=== PATIENT | male | born 1970 | race American Indian/Alaskan Native ===

== ENCOUNTER 2019-08-12 08:43 | Emergency (ER) | payer SELFPAY ==
[2019-08-12] MEDS ORDERED: dexAMETHasone 20 MG/5 ML VIAL IM ONE (10:31)
[2019-08-12] MEDS ORDERED: IPRATROPIUM/ALBUTEROL SULFATE 3 ML AMPUL.NEB IH ONE (10:31)
--- NOTE | 2019-08-12 10:50 | Emergency Department Report ---
ED Shortness of Breath HPI - General Chief Complaint: Adult Asthma Stated Complaint: ASTHMA Time Seen by Provider: 08/12/19 10:06 Source: patient Mode of arrival: Ambulatory Limitations: No Limitations - History of Present Illness Initial Comments: Patient is a 48-year-old male presents emergency room with complaints of shortness of breath and wheezing over the last 2 days. He has a history of asthma and COPD. He states that he uses an albuterol inhaler and nebulizer treatments but ran out of his inhaler and solution a couple of days ago which led to his exacerbation. He states he recently moved here and does not yet have a primary care doctor. He denies any fever, cough, productive cough, vomiting, diarrhea, chest congestion. He denies any's known sick contacts or recent travel. He states that he has decreased his smoking to 1 cigarette/day. He has a past medical history of HIV and is on antivirals and states that he is undetectable, he states that he had lab work drawn this week for infectious disease and states he has a repeat appointment on 08/25/2019. - Related Data Previous Rx's Medication Instructions Recorded Last Taken Type Albuterol Sulfate [Albuterol 0.63% 0.63 mg IH TID PRN #1 box 08/12/19 Unknown Rx NEBS] Albuterol Sulfate [Proventil Hfa] 2 puff IH TID PRN #1 hfa.aer.ad 08/12/19 Unknown Rx Prednisone [predniSONE 10 mg 10 mg PO .TAPER #1 tab.ds.pk 08/12/19 Unknown Rx (6-Day Pack, 21 Tabs)] Allergies Allergy/AdvReac Type Severity Reaction Status Date / Time No Known Allergies Allergy Verified 08/12/19 08:46 ED Review of Systems ROS: Stated complaint: ASTHMA Other details as noted in HPI Comment: All other systems reviewed and negative ED Past Medical Hx - Past Medical History Previous Medical History?: Yes Hx Hypertension: Yes Hx Asthma: Yes Hx COPD: Yes Hx HIV: Yes (compliant) - Surgical History Past Surgical History?: No - Social History Smoking Status: Light Tobacco Smoker Substance Use Type: None - Medications Home Medications: Home Medications Medication Instructions Recorded Confirmed Last Taken Type Albuterol Sulfate [Albuterol 0.63% 0.63 mg IH TID PRN #1 box 08/12/19 Unknown Rx NEBS] Albuterol Sulfate [Proventil Hfa] 2 puff IH TID PRN #1 hfa.aer.ad 08/12/19 Unknown Rx Prednisone [predniSONE 10 mg 10 mg PO .TAPER #1 tab.ds.pk 08/12/19 Unknown Rx (6-Day Pack, 21 Tabs)] ED Physical Exam - General Limitations: No Limitations General appearance: alert, in no apparent distress - Head Head exam: Present: atraumatic, normocephalic - Eye Eye exam: Present: normal appearance - ENT ENT exam: Present: mucous membranes moist - Respiratory Respiratory exam: Present: wheezes (mild bilaterally), other (slightly decreased air movement). Absent: respiratory distress, rales, rhonchi, stridor, chest wall tenderness, accessory muscle use, prolonged expiratory - Cardiovascular Cardiovascular Exam: Present: regular rate, normal rhythm, normal heart sounds. Absent: systolic murmur, diastolic murmur, rubs, gallop - Neurological Exam Neurological exam: Present: alert, oriented X3 - Psychiatric Psychiatric exam: Present: normal affect, normal mood - Skin Skin exam: Present: warm, dry, intact ED Course Vital Signs 08/12/19 08/12/19 08:46 10:56 Temperature 98.2 F 98.2 F Pulse Rate 88 Respiratory 18 Rate Blood Pressure 136/84 [Left] O2 Sat by Pulse 97 Oximetry ED Medical Decision Making - Medical Decision Making Patient is a 48-year-old male presents emergency room with complaints of shortness of breath and wheezing over the last 2 days. He has a history of asthma and COPD. He states that he uses an albuterol inhaler and nebulizer treatments but ran out of his inhaler and solution a couple of days ago which led to his exacerbation. He states he recently moved here and does not yet have a primary care doctor. He denies any fever, cough, productive cough, vomiting, diarrhea, chest congestion. He denies any's known sick contacts or recent tr amie. He states that he has decreased his smoking to 1 cigarette/day. He has a past medical history of HIV and is on antivirals and states that he is undetectable, he states that he had lab work drawn this week for infectious disease and states he has a repeat appointment on 08/25/2019. vitals are normal. on exam: Mild wheezing bilaterally, slightly decreased air movement, no respiratory distress, no accessory muscle use, no rhonchi, no rales. Patient given DuoNeb and dexamethasone injection and wheezing has completely resolved and patient has good air movement. Patient has no clinical signs of pneumonia or acute bacterial bronchitis. Patient given refills of his medication and given a steroid Dosepak. Advised patient to please take medication as prescribed. Follow-up with a primary care doctor. Please stop smoking. Keep your appointment with your infectious disease doctor. Return to emergency room for new or worsening symptoms. Critical care attestation.: If time is entered above; I have spent that time in minutes in the direct care of this critically ill patient, excluding procedure time. ED Disposition Clinical Impression: Asthma Qualifiers: Asthma severity: unspecified severity Asthma persistence: unspecified Asthma complication type: with acute exacerbation Qualified Code(s): J45.901 - Unspecified asthma with (acute) exacerbation COPD (chronic obstructive pulmonary disease) Qualifiers: COPD type: unspecified COPD Qualified Code(s): J44.9 - Chronic obstructive pulmonary disease, unspecified Disposition: TO HOME OR SELFCARE Is pt being admited?: No Does the pt Need Aspirin: No Condition: Stable Instructions: Asthma (ED), Chronic Obstructive Pulmonary Disease (ED) Additional Instructions: please take medication as prescribed. Follow-up with a primary care doctor. Please stop smoking. Keep your appointment with your infectious disease doctor. Return to emergency room for new or worsening symptoms. Prescriptions: Albuterol Sulfate [Albuterol 0.63% NEBS] 0.63 mg IH TID PRN #1 box PRN Reason: Wheezing Prednisone [predniSONE 10 mg (6-Day Pack, 21 Tabs)] 10 mg PO .TAPER #1 tab.ds.pk Albuterol Sulfate [Proventil Hfa] 2 puff IH TID PRN #1 hfa.aer.ad PRN Reason: Shortness Of Breath Referrals: ROSA SIERRA MD [Staff Physician] - 3-5 Days [facility] [Provider Group] - 3-5 Days [facility] [place] [Outside] - 3-5 Days [facility] [Outside] - 3-5 Days Time of Disposition: 11:31 Print Language: GREEK
[2019-08-12 10:57] VITALS: BP 136/84
== END 2019-08-12 11:41 | disposition home or self-care (01) ==
LOC: ED 08:43
DX: J44.9 Chronic obstructive pulmonary disease, unspecified (principal); I10 Essential (primary) hypertension; F17.200 Nicotine dependence, unspecified, uncomplicated
CPT/HCPCS: 94640; 96372; 99282; J1100